=== PATIENT | female | born 1950 | race Caucasian/White ===

== ENCOUNTER 2017-08-19 12:42 | Emergency (ER) | payer OTHER ==
[2017-08-19 12:54] VITALS: BP 159/80; PULSE 84; TEMP 98.2; BMI 26.2
--- NOTE | 2017-08-19 13:56 | PDOC ---
History of Present Illness - General Chief Complaint: Pain Stated Complaint: PAIN/ BACK, LEGS Time Seen by Provider: 08/19/17 13:55 History Source: Patient Exam Limitations: No Limitations - History of Present Illness Initial Comments: 08/19/17 14:16 My chief complaint: Lower back pain bilaterally down posterior thighs and on left side towards left groin area also History of present illness: Patient is a 66-year-old female with history of hypothyroidism, none of insulin-dependent diabetes, hypertension, and depression and bilateral knee pain here today complaining of worsening lower back pain that radiates down posterior thighs. Patient reports that pain also reports on left side lower back pain radiates also to her left groin area as well. Patient reports that pain has been getting worse over the last 2 weeks patient thinks it might be related to having to walk further including up hills to get to her apartment due to some construction with parking. Patient reports that last night around 2:30 when she got up in the morning she tried to walk and her legs felt weak she did not have her cane patient fell but did not injure herself. Patient denies hitting her head. Patient reports having some tingling of bilateral lower extremities. Patient denies any saddle anesthesia or any incontinency. Patient reports taking tramadol and the past for pain but thinks it's too strong. Occurred: reports: other (almost 2 weeks ) Severity: reports: moderate Pain Location: reports: back (b/l lower back radiates down b/l posterrior thighs , and on left towards left groin area also) Method of Injury: Yes: unknown Modifying Factors: improves with: None Loss of Consciousness: no loss of consciousness Associated Symptoms (Fall): trouble walking (uses a cane) Past History - Past Medical History Allergies/Adverse Reactions: Allergies Allergy/AdvReac Type Severity Reaction Status Date / Time No Known Allergies Allergy Verified 08/19/17 12:53 Home Medications: Ambulatory Orders Amlodipine Besylate [Norvasc -] 10 mg PO DAILY 04/08/12 Levothyroxine [Synthroid -] 125 mcg PO DAILY 04/08/12 Sitagliptin Phos/Metformin HCl [Janumet 50-500 mg Tablet] 1 tab PO DAILY Gabapentin 100 mg PO TID 12/31/15 Cyclobenzaprine HCl 5 mg PO Q8H PRN #21 tablet 08/19/17 Naproxen [Naprosyn -] 500 mg PO BID PRN #14 tablet 08/19/17 Anemia: No Asthma: No Cancer: No Cardiac Disorders: No CVA: No COPD: No CHF: No Dementia: No Diabetes: Yes GI Disorders: No Disorders: No HTN: Yes Hypercholesterolemia: No Liver Disease: No Seizures: No Thyroid Disease: Yes - Surgical History Abdominal Surgery: No Appendectomy: No Cardiac Surgery: No Cholecystectomy: No Lung Surgery: No Neurologic Surgery: No Orthopedic Surgery: No - Suicide/Smoking/Psychosocial Hx Smoking Status: No Smoking History: Never smoked Have you smoked in the past 12 months: No Number of Cigarettes Smoked Daily: 0 If you are a former smoker, when did you quit?: 1989 Alcohol Use: No Drug/Substance Use Hx: No Substance Use Type: None Hx Substance Use Treatment: No Review of Systems - Review of Systems Able to Perform ROS?: Yes Constitutional: No: Symptoms Reported HEENTM: No: Symptoms Reported Respiratory: No: Symptoms reported Cardiac (ROS): No: Symptoms Reported ABD/GI: No: Symptoms Reported : No: Symptoms Reported Musculoskeletal: Yes: Back Pain (b/l lumbar paraspinal muscles radiates to b/l posterior thighs, on left radiates towards left groin area also ) Integumentary: No: Symptoms Reported Neurological: Yes: Tingling (b/l lower extremities ) *Physical Exam - Vital Signs Last Vital Signs Temp Pulse Resp BP Pulse Ox 98.2 F 84 20 159/80 99 08/19/17 12:49 08/19/17 12:49 08/19/17 12:49 08/19/17 12:49 08/19/17 12:49 - Physical Exam General Appearance: Yes: Appropriately Dressed Respiratory/Chest: positive: Lungs Clear, Normal Breath Sounds. negative: Chest Tender, Respiratory Distress Cardiovascular: positive: Regular Rhythm, Regular Rate, S1, S2 Vascular Pulses: Dorsalis-Pedis (R): 4+, Doralis-Pedis (L): 4+ Gastrointestinal/Abdominal: positive: Normal Bowel Sounds, Soft. negative: Tender, Organomegaly, Distended, Guarding, Rebound, Tenderness, Hepatomegaly, Spleenomegaly Musculoskeletal: positive: Normal Inspection, Decreased Range of Motion (at waist with flexionm), Other (paraspinal lumbar muscle tenderness b/l ). negative: CVA Tenderness, CVA Tenderness (R), CVA Tenderness (L), Vertebral Tenderness Extremity: positive: Normal Capillary Refill, Normal Inspection, Normal Range of Motion. negative: Tender, Swelling Integumentary: positive: Normal Color Neurologic: positive: Alert, Normal Response, Motor Strength 5/5 (lower b/l ), Respond to painful stimul (b/l legs ), Responsive, Other (negative SLR b/l). negative: Numbness, Sensory Deficit (lower extremity) Deep Tendon Reflexes: Knee (L): 4+, Knee (R): 3+ Medical Decision Making - Medical Decision Making 08/19/17 14:19 Patient is a 66-year-old female with history of hypothyroidism, none of insulin- dependent diabetes, hypertension, and depression and bilateral knee pain here today complaining of worsening lower back pain that radiates down posterior thighs. Patient reports that pain also reports on left side lower back pain radiates also to her left groin area as well. Patient reports that pain has been getting worse over the last 2 weeks patient thinks it might be related to having to walk further including up hills to get to her apartment due to some construction with parking. Patient reports that last night around 2:30 when she got up in the morning she tried to walk and her legs felt weak she did not have her cane patient fell but did not injure herself. Patient denies hitting her head. Patient reports having some tingling of bilateral lower extremities. Patient denies any saddle anesthesia or any incontinency. Patient reports taking tramadol and the past for pain but thinks it's too strong. She was ambulating with a cane today without weakness of legs. b/l lumbar radiculopathy PLAN: toradol 60 mg IM now xray lumbar sacral spine since the lordosis has increased. There are arthritic changes have developed Naprosyn 500 mg every 12 hours when necessary pain #14 tablets Cyclobenzaprine 5 mg every 8 hours when necessary muscle spasm #21 tabs patient warned not to do anything that requires alertness such as driving or operating machinery pt. has her own orthopedist in [place]. 08/19/17 15:10 08/20/17 19:49 *DC/Admit/Observation/Transfer Diagnosis at time of Disposition: Lumbar pain with radiation down both legs - Discharge Dispostion Disposition: HOME Condition at time of disposition: Stable - Prescriptions Prescriptions: Cyclobenzaprine HCl 5 mg PO Q8H PRN #21 tablet PRN Reason: Muscle Spasms Naproxen [Naprosyn -] 500 mg PO BID PRN #14 tablet PRN Reason: Pain - Referrals Referrals: Omer Poon [Primary Care Provider] - - Patient Instructions Additional Instructions: Follow-up with orthopedist as soon as possible for further evaluation Return to emergency room if any weakness of legs or loss of control of bladder or bowel movement Avoid any strenuous activities try to limit walking up hills Patient voiced understanding of discharge instructions and all questions were answered - Post Discharge Activity
[2017-08-19] MEDS ORDERED: KETOROLAC TROMETHAMINE 60 MG/2 ML VIAL IM ONE (14:13)
[2017-08-19] MEDS ORDERED: KETOROLAC TROMETHAMINE 60 MG/2 ML VIAL ONE (14:17)
== END 2017-08-19 15:29 | disposition home or self-care (01) ==
LOC: JERFT 12:42
PROC: 3E0233Z Introduction of Anti-inflammatory into Muscle, Percutaneous Approach (ICD-10-PCS; principal; 2017-08-19)
DX: M54.16 Radiculopathy, lumbar region (principal); I10 Essential (primary) hypertension; E03.9 Hypothyroidism, unspecified; E11.9 Type 2 diabetes mellitus without complications; Z79.84 Long term (current) use of oral hypoglycemic drugs
CPT/HCPCS: 72100-TC; 96372; 99281-25

== ENCOUNTER 2019-06-12 11:09 | Emergency (ER) | payer OTHER ==
[2019-06-12 11:41] VITALS: BP 131/52; PULSE 77; TEMP 98; BMI 26.0
[2019-06-12] MEDS ORDERED: LIDOCAINE 5% TOPICAL PATCH TP ONE (12:32)
[2019-06-12] MEDS ORDERED: CYCLOBENZAPRINE HCL 10 MG TABLET (FP) PO ONE (12:32)
[2019-06-12] MEDS ORDERED: IBUPROFEN 600 MG TABLET (FP) PO ONE ×2 (12:32→12:40)
[2019-06-12] MEDS ORDERED: MAG HYDROX/AL HYDROX/SIMETH 30 ML UNIT-DOSE CUP PO ONE (12:34)
[2019-06-12] MEDS ORDERED: MAG HYDROX/AL HYDROX/SIMETH 30 ML UNIT-DOSE CUP ONE (12:40)
[2019-06-12] MEDS ORDERED: LIDOCAINE 5% TOPICAL PATCH ONE (12:40)
[2019-06-12] MEDS ORDERED: CYCLOBENZAPRINE HCL 10 MG TABLET (FP) ONE (12:40)
--- NOTE | 2019-06-12 13:16 | PDOC ---
History of Present Illness - General Chief Complaint: Back Pain Stated Complaint: BACK PAIN Time Seen by Provider: 06/12/19 12:01 History Source: Patient Exam Limitations: No Limitations Past History - Past Medical History Allergies/Adverse Reactions: Allergies Allergy/AdvReac Type Severity Reaction Status Date / Time No Known Allergies Allergy Verified 06/12/19 11:41 Home Medications: Ambulatory Orders Amlodipine Besylate [Norvasc -] 10 mg PO DAILY 04/08/12 Levothyroxine [Synthroid -] 125 mcg PO DAILY 04/08/12 Sitagliptin Phos/Metformin HCl [Janumet 50-500 mg Tablet] 1 tab PO DAILY Gabapentin 100 mg PO TID 12/31/15 Cyclobenzaprine HCl 5 mg PO Q8H PRN #21 tablet 08/19/17 Naproxen [Naprosyn -] 500 mg PO BID PRN #14 tablet 08/19/17 Cyclobenzaprine HCl [Flexeril 10 mg] 5 mg PO DAILY PRN #7 tablet 06/12/19 Lidocaine 5% Patch [Lidoderm -] 1 patch TP DAILY #7 patch 06/12/19 Anemia: No Asthma: No Cancer: No Cardiac Disorders: No CVA: No COPD: No CHF: No Dementia: No Diabetes: Yes GI Disorders: No Disorders: No HTN: Yes Hypercholesterolemia: No Liver Disease: No Psychiatric Problems: Yes (ANXIETY, DEPRESSION) Seizures: No Thyroid Disease: Yes (HYPO) - Surgical History Abdominal Surgery: No Appendectomy: No Cardiac Surgery: No Cholecystectomy: No Lung Surgery: No Neurologic Surgery: No Orthopedic Surgery: No - Immunization History Immunization Up to Date: Yes - Psycho Social/Smoking Cessation Hx Smoking Status: No Smoking History: Never smoked Have you smoked in the past 12 months: No Number of Cigarettes Smoked Daily: 0 If you are a former smoker, when did you quit?: 1989 Information on smoking cessation initiated: No Hx Alcohol Use: No Drug/Substance Use Hx: No Substance Use Type: None Hx Substance Use Treatment: No *Physical Exam - Vital Signs Last Vital Signs Temp Pulse Resp BP Pulse Ox 98.0 F 77 18 131/52 L 98 06/12/19 11:36 06/12/19 11:36 06/12/19 11:36 06/12/19 11:36 06/12/19 11:36 - Physical Exam General Appearance: No: Apparent Distress Respiratory/Chest: positive: Lungs Clear, Normal Breath Sounds. negative: Respiratory Distress Cardiovascular: positive: Regular Rhythm, Regular Rate, S1, S2. negative: Murmur Gastrointestinal/Abdominal: positive: Normal Bowel Sounds, Soft. negative: Tender, Distended, Guarding, Rebound Musculoskeletal: positive: Other (+L lumbar paraspinal tenderness, negative SLR) . negative: Vertebral Tenderness Neurologic: positive: Alert, Normal Mood/Affect, Motor Strength 5/5, Other ( able to ambulate). negative: Sensory Deficit ED Treatment Course - Medications Given in the ED: ED Medications Discontinued Medications Generic Name Dose Route Start Last Admin Trade Name Freq PRN Reason Stop Dose Admin Al Hydroxide/Mg Hydroxide 30 ml 06/12/19 12:34 06/12/19 12:44 Mylanta Oral Suspension - PO 06/12/19 12:35 30 ml ONCE ONE Administration Cyclobenzaprine HCl 5 mg 06/12/19 12:32 06/12/19 12:44 Flexeril - PO 06/12/19 12:33 5 mg ONCE ONE Administration Ibuprofen 600 mg 06/12/19 12:32 06/12/19 12:44 Motrin - PO 06/12/19 12:33 600 mg ONCE ONE Administration Lidocaine 1 patch 06/12/19 12:32 06/12/19 12:44 Lidoderm Patch - TP 06/12/19 12:33 1 patch ONCE ONE Administration Medical Decision Making - Medical Decision Making 68 y/o F hx hypothyroid, HTN, DM, depression, anxiety, chronic neck pain presents with LBP radiating down L leg x 1 week after lifting something heavy and then exacerbated 5 days ago after going to gym after a long time. Follows with neuro, Dr. Gonzales, due to neck issues and states an [employer]EC[employer] from the office prescribed her gabapentin few days ago, which she has not yet taken. Denies fever, sob, cp, abd pain, vomiting, urinary complaints, incontinence, saddle/ groin paresthesia. Denies back surgeries. Likely sciatica Given Motrin, Flexeril and Lidocaine patch and patient feeling much better stable for dc 06/12/19 13:12 Discharge - Discharge Information Problems reviewed: Yes Clinical Impression/Diagnosis: Sciatica Qualifiers: Laterality: left Qualified Code(s): M54.32 - Sciatica, left side Condition: Improved Disposition: HOME - Admission No - Additional Discharge Information Prescriptions: Cyclobenzaprine HCl [Flexeril 10 mg] 5 mg PO DAILY PRN #7 tablet PRN Reason: Muscle Spasms Lidocaine 5% Patch [Lidoderm -] 1 patch TP DAILY #7 patch Prescription Drug Monitoring Program (I-STOP) results: I-STOP not reviewed - Follow up/Referral Referrals: Carolyn Pathak MD [Primary Care Provider] - 2 Days - Patient Discharge Instructions Patient Printed Discharge Instructions: DI for Back Pain With Sciatica Additional Instructions: Thank you for choosing [facility]. It was a pleasure taking care of you. You may take Tylenol 650 mg or Motrin 600 mg every 6 hours by mouth as needed for mild to moderate pain. Take Motrin with food. Do not take more than 4000 mg of Tylenol in 1 day. Please realize that Motrin can affect kidney function. Take Flexeril as needed for muscle spasms. This medication can also make you drowsy so please be cautious with driving or performing heavy physical work. Recommend warm compresses Continue follow-up with your neurologist and primary care doctor Return to the Emergency Department if your symptoms worsen or persist, you have fever, shortness of breath, chest pain, severe abdominal pain, vomiting, weakness of extremities (arms and/or legs), changes in vision or walking or other concerning symptoms. - Post Discharge Activity
== END 2019-06-12 13:27 | disposition home or self-care (01) ==
LOC: JERFT 11:09
DX: M54.42 Lumbago with sciatica, left side (principal); I10 Essential (primary) hypertension; E11.9 Type 2 diabetes mellitus without complications; Z79.84 Long term (current) use of oral hypoglycemic drugs; E03.9 Hypothyroidism, unspecified; F41.8 Other specified anxiety disorders; F32.9 Major depressive disorder, single episode, unspecified; M54.2 Cervicalgia; G89.29 Other chronic pain
CPT/HCPCS: 99282-25

== ENCOUNTER 2019-07-07 17:35 | Emergency (ER) | payer OTHER ==
[2019-07-07 17:49] VITALS: BP 161/76; PULSE 88; TEMP 98.1; BMI 26.9
[2019-07-07] MEDS ORDERED: KETOROLAC TROMETHAMINE 60 MG/2 ML VIAL ONE (18:58)
[2019-07-07] MEDS ORDERED: KETOROLAC TROMETHAMINE 60 MG/2 ML VIAL IM ONE (19:00)
--- NOTE | 2019-07-07 19:05 | PDOC ---
History of Present Illness - General Chief Complaint: Back Pain Stated Complaint: back pain Time Seen by Provider: 07/07/19 18:44 - History of Present Illness Initial Comments: 07/07/19 19:02 68-year-old female with a past medical history of hypertension diabetes presents for evaluation of lumbar radiculopathy without systemic or urinary symptoms no loss of bowel or bladder functions Past History - Past Medical History Allergies/Adverse Reactions: Allergies Allergy/AdvReac Type Severity Reaction Status Date / Time No Known Allergies Allergy Verified 06/12/19 11:41 Home Medications: Ambulatory Orders Amlodipine Besylate [Norvasc -] 10 mg PO DAILY 04/08/12 Levothyroxine [Synthroid -] 125 mcg PO DAILY 04/08/12 Sitagliptin Phos/Metformin HCl [Janumet 50-500 mg Tablet] 1 tab PO DAILY Gabapentin 100 mg PO TID 12/31/15 Cyclobenzaprine HCl 5 mg PO Q8H PRN #21 tablet 08/19/17 Naproxen [Naprosyn -] 500 mg PO BID PRN #14 tablet 08/19/17 Cyclobenzaprine HCl [Flexeril 10 mg] 5 mg PO DAILY PRN #7 tablet 06/12/19 Lidocaine 5% Patch [Lidoderm -] 1 patch TP DAILY #7 patch 06/12/19 Cyclobenzaprine HCl [Flexeril 10 mg] 10 mg PO HS PRN #10 tablet 07/07/19 Anemia: No Asthma: No Cancer: No Cardiac Disorders: No CVA: No COPD: No CHF: No Dementia: No Diabetes: Yes GI Disorders: No Disorders: No HTN: Yes Hypercholesterolemia: No Liver Disease: No Psychiatric Problems: Yes (ANXIETY, DEPRESSION) Seizures: No Thyroid Disease: Yes (HYPO) - Surgical History Abdominal Surgery: No Appendectomy: No Cardiac Surgery: No Cholecystectomy: No Lung Surgery: No Neurologic Surgery: No Orthopedic Surgery: No - Immunization History Immunization Up to Date: Yes - Psycho Social/Smoking Cessation Hx Smoking Status: No Smoking History: Never smoked Have you smoked in the past 12 months: No Number of Cigarettes Smoked Daily: 0 If you are a former smoker, when did you quit?: 1989 Information on smoking cessation initiated: No Hx Alcohol Use: No Drug/Substance Use Hx: No Substance Use Type: None Hx Substance Use Treatment: No Review of Systems - Review of Systems Constitutional: No: Fever Musculoskeletal: Yes: Back Pain Neurological: Yes: See HPI *Physical Exam - Vital Signs Last Vital Signs Temp Pulse Resp BP Pulse Ox 98.1 F 88 16 161/76 99 07/07/19 17:45 07/07/19 17:45 07/07/19 17:45 07/07/19 17:45 07/07/19 17:45 - Physical Exam Comments: 07/07/19 19:03 Lumbar spine skin color and temperature normal range of motion is limited. There is no midline tenderness. Moderate right and left paralumbar muscular spasm and tenderness 5 out of 5 strength bilateral lower extremities without gross sensorimotor deficits neurovascular intact Medical Decision Making - Medical Decision Making 07/07/19 19:03 Ongoing lumbar radiculopathy. Patient recently started on Neurontin. She did not take any anti-inflammatories today we will give her a one-time injection of Toradol in the emergency room to try to help her pain having her avoid anti- inflammatories at home and have her follow-up with neurosurgery and also increased dose of her Flexeril which she ran out of. Discharge - Discharge Information Problems reviewed: Yes Clinical Impression/Diagnosis: Lumbar radiculopathy Condition: Stable Disposition: HOME - Admission No - Additional Discharge Information Prescriptions: Cyclobenzaprine HCl [Flexeril 10 mg] 10 mg PO HS PRN #10 tablet PRN Reason: Muscle Spasms - Follow up/Referral Referrals: Omer Poon [Primary Care Provider] - Vega Morrison MD [Staff Physician] - - Patient Discharge Instructions Additional Instructions: No anti-inflammatory such as Advil Motrin Aleve or ibuprofen. No Naprosyn. Tylenol for pain as directed. Please take Flexeril as directed and return to the emergency room should symptoms worsen. Without fail, please follow-up with neurosurgery in 1 to 2 days for further evaluation and treatment options. - Post Discharge Activity
== END 2019-07-07 19:09 | disposition home or self-care (01) ==
LOC: JERFT 17:35
PROC: 3E0233Z Introduction of Anti-inflammatory into Muscle, Percutaneous Approach (ICD-10-PCS; principal; 2019-07-07)
DX: M54.16 Radiculopathy, lumbar region (principal); M62.830 Muscle spasm of back; I10 Essential (primary) hypertension; E11.9 Type 2 diabetes mellitus without complications; Z79.84 Long term (current) use of oral hypoglycemic drugs; E03.9 Hypothyroidism, unspecified; F41.8 Other specified anxiety disorders; F32.9 Major depressive disorder, single episode, unspecified
CPT/HCPCS: 96372; 99281-25

== ENCOUNTER 2019-09-11 15:12 | Emergency (ER) | payer OTHER ==
--- NOTE | 2019-09-11 15:19 | PDOC ---
Rapid Medical Evaluation Time Seen by Provider: 09/11/19 15:14 Medical Evaluation: Allergies Allergy/AdvReac Type Severity Reaction Status Date / Time No Known Allergies Allergy Verified 06/12/19 11:41 09/11/19 15:15 I have performed a brief in-person evaluation of this patient. The patient presents with a chief complaint of: recent [facility] fall landing on knees and now states lower back pain, amb w/ cane, no limp, able to get and sit down in chair without any signs of discomfort Pertinent physical exam findings: no midline tenderness, vss, FROM of darius patellas I have ordered the following: none The patient will proceed to the ED for further evaluation. Discharge Disposition - Diagnosis Right leg pain, Sciatica Fall Qualifiers: Encounter type: initial encounter Qualified Code(s): W19.XXXA - Unspecified fall, initial encounter - Discharge Dispostion Disposition: HOME Condition at time of disposition: Stable - Prescriptions Prescriptions: Cyclobenzaprine HCl [Flexeril -] 10 mg PO HS #10 tablet Ketorolac Tromethamine [Toradol] 10 mg PO TID #21 tablet Walker [Ultra-Light Rollator] 1 each ASDIR #1 each - Referrals Referrals: Omer Poon [Primary Care Provider] - - Patient Instructions Printed Discharge Instructions: DI for Sciatica, DI for Arthritis Additional Instructions: You were evaluated for your injuries after a fall today. Your x-rays were negative for fracture. Please continue to wear your wrist splint for your arthritis in your right hand. You may wear the splint at night to help with the pain Please take the Toradol as directed. You may take Tylenol 650 mg every 6 hours as needed for pain. Take the Flexeril as directed. Do not drink or drive after taking this medication as it may make you drowsy. Please follow-up with your neurologist this week Return to the ER for worsening pain, unsteadiness or if you have any changes in your symptoms. - Post Discharge Activity
[2019-09-11 15:29] VITALS: BP 150/81; PULSE 93; TEMP 98.1; BMI 25.6
[2019-09-11] MEDS ORDERED: KETOROLAC TROMETHAMINE 30 MG/1 ML VIAL IM ONE (16:47)
[2019-09-11] MEDS ORDERED: LIDOCAINE 5% TOPICAL PATCH TP ONE (16:47)
[2019-09-11] MEDS ORDERED: KETOROLAC TROMETHAMINE 30 MG/1 ML VIAL ONE (16:49)
[2019-09-11] MEDS ORDERED: LIDOCAINE 5% TOPICAL PATCH ONE (16:49)
[2019-09-11] MEDS ORDERED: CYCLOBENZAPRINE HCL 10 MG TABLET (FP) PO ONE (18:00)
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
[2019-09-11] MEDS ORDERED: CYCLOBENZAPRINE HCL 10 MG TABLET (FP) ONE (18:24)
== END 2019-09-11 18:28 | disposition home or self-care (01) ==
LOC: JERFT 15:12
PROC: 3E0233Z Introduction of Anti-inflammatory into Muscle, Percutaneous Approach (ICD-10-PCS; principal; 2019-09-11)
DX: M54.42 Lumbago with sciatica, left side (principal); M62.830 Muscle spasm of back; M25.561 Pain in right knee; M25.562 Pain in left knee; M79.641 Pain in right hand; W18.09XA Striking against other object with subsequent fall, initial encounter; Y93.01 Activity, walking, marching and hiking; Y92.038 Other place in apartment as the place of occurrence of the external cause; Y99.8 Other external cause status; Z99.89 Dependence on other enabling machines and devices; I10 Essential (primary) hypertension; E11.9 Type 2 diabetes mellitus without complications; Z79.84 Long term (current) use of oral hypoglycemic drugs; E03.9 Hypothyroidism, unspecified; F41.8 Other specified anxiety disorders; F32.9 Major depressive disorder, single episode, unspecified
CPT/HCPCS: 73130-TC-RT-FY; 73562-TC-RT-FY; 73590-TC-RT-FY; 99281-25

== ENCOUNTER 2019-10-06 11:16 | Emergency (ER) | payer OTHER ==
[2019-10-06] MEDS ORDERED: MAG HYDROX/AL HYDROX/SIMETH 30 ML UNIT-DOSE CUP ONE (11:39)
[2019-10-06] MEDS ORDERED: FAMOTIDINE 20 MG/50 ML IVPB 20 MG/50 ML MG IVPB ONE (11:39)
[2019-10-06] MEDS ORDERED: KETOROLAC TROMETHAMINE 30 MG/1 ML VIAL IM ONE (11:46)
[2019-10-06] MEDS ORDERED: CYCLOBENZAPRINE HCL 10 MG TABLET (FP) PO ONE (11:46)
--- NOTE | 2019-10-06 11:48 | PDOC ---
History of Present Illness - General Chief Complaint: Pain Stated Complaint: left leg pain Time Seen by Provider: 10/06/19 11:21 History Source: Patient Exam Limitations: No Limitations - History of Present Illness Initial Comments: 10/06/19 11:47 68y F hx of htn, hypothyroidism, dm, chronic back pain presents with complaint of back pain. Patient states that she has been having lower back pain for the past 5 months it is occasionally improved with Motrin however the last several days has been getting worse. Patient notes that the pain begins in the left lower back and radiates down her leg And feels like "water running down her legs ". The patient does remember approximately 5 months ago she was lifting a squash and putting it into a trunk when it first started. The patient denies any recent injury/trauma, numbness, tingling, urinary bowel incontinence, fevers , chills. She denies any chest pain, shortness of breath, dyspnea on exertion, abdominal pain. The patient has seen multiple physicians including her primary care doctor or neurologist, She is also had MRIs noting disc herniations as well as spinal stenosis and L4-L5 region. Patient last took Motrin last night, she takes Proximally once daily 400 mg due to concern for gastric issues. She also is taking CBD with mild improvement. ROS Constitutional - no reported Fever, Chills, Respiratory: no reported cough, sob, Cardiac: no reported chest pain, Abd/GI: no reported abd pain, nausea, vomiting, : no reported urinary incontinence, gu tingling Musculskelatal - +back pain, no reported joint swelling skin - no reported bruising, erythema, rash neurological: no reported headache, numbness, focal weakness, tingling, ataxia, hematologic: no reported easy bruising, easy bleeding Exam: GENERAL: The patient is awake, alert, and fully oriented, Nontoxic - in no acute distress. NECK: Normal range of motion, supple LUNGS: Breath sounds equal, clear to auscultation bilaterally. No wheezes, no rhonchi, no rales. HEART: Regular rate and rhythm, normal S1 and S2 without murmur, rub or gallop. ABDOMEN: Soft, nontender, No guarding, no rebound. No CVA tenderness EXTREMITIES: Normal range of motion, no edema. BACK: Mild left lower/lumbar paraspinal tenderness, no focal midline tenderness , ecchymosis, step-offs, crepitus. NEUROLOGICAL: No facial assymetry, Normal speech, Moving all 4 expect extremity spontaneously and symmetrically including dorsi and plantar flexion of the legs. No sensory deficits appreciated On lower extremities PSYCH: Normal mood, normal affect. SKIN: Warm, Dry, normal turgor, ap Her back pain is likely secondary to muscle spasm and likely disc impingement There are no red flags to suggest cord Compression We will give the patient Motrin, Flexeril, heating pads I believe that she has not gotten significantly better due to sporadic use of NSAIDs, Will recommend more consistent use for the next 3 days, PMD follow-up, return precautions were discussed Past History - Past Medical History Allergies/Adverse Reactions: Allergies Allergy/AdvReac Type Severity Reaction Status Date / Time No Known Allergies Allergy Verified 10/06/19 11:17 Home Medications: Ambulatory Orders Amlodipine Besylate 10 mg PO DAILY 10/06/19 Ibuprofen 400 mg PO DAILY 10/06/19 Levothyroxine [Synthroid -] 125 mcg PO DAILY 10/06/19 Losartan Potassium 50 mg PO DAILY 10/06/19 Metformin HCl [Glucophage] 500 mg PO DAILY 10/06/19 Discharge - Discharge Information Problems reviewed: Yes Clinical Impression/Diagnosis: Back pain at L4-L5 level, Sciatica of left side Condition: Improved Disposition: HOME - Admission No - Follow up/Referral Referrals: Omer Poon [Non Staff, Medical] - - Patient Discharge Instructions Patient Printed Discharge Instructions: DI for Low Back Pain, DI for Back Pain With Sciatica Additional Instructions: Return to the emergency department immediately with ANY new, persistent or worsening symptoms including numbness, tingling, weakness, fevers or any other concerns. Take ibuprofen (400mg)/tylenol(650mg) every 6 hours for 2 days. Take the flexeril if you still have pain/discomfort. Caution in using Valium as it may make you sleepy. Do not drive or put yourself in any position where you would be in danger. Apply heat to your sore muscles. You MUST call and follow up with your doctor tomorrow for further evaluation of your symptoms. Your emergency department visit is not complete without a followup with your doctor for reevaluation.. Results were discussed with you. Please make sure your doctor reviews the results of your emergency evaluation. Print Language: NIGERIAN - Post Discharge Activity
[2019-10-06 12:01] VITALS: BP 174/91; PULSE 102; TEMP 98.1; BMI 25.1
[2019-10-06] MEDS ORDERED: KETOROLAC TROMETHAMINE 30 MG/1 ML VIAL ONE (12:01)
[2019-10-06] MEDS ORDERED: CYCLOBENZAPRINE HCL 10 MG TABLET (FP) ONE (12:01)
== END 2019-10-06 13:02 | disposition home or self-care (01) ==
LOC: MERGE 11:16 → FER 11:16
PROC: 3E0233Z Introduction of Anti-inflammatory into Muscle, Percutaneous Approach (ICD-10-PCS; principal; 2019-10-06)
DX: I10 Essential (primary) hypertension (principal); G89.29 Other chronic pain
CPT/HCPCS: 96372; 99282-25

== ENCOUNTER 2022-04-30 07:15 | Emergency (ER) | payer OTHER ==
[2022-04-30 07:26] VITALS: TEMP 98.2; BMI 25.1
[2022-04-30] MEDS ORDERED: KETOROLAC TROMETHAMINE 15 MG/ML VIAL IM ONE (07:49)
[2022-04-30] MEDS ORDERED: CYCLOBENZAPRINE HCL 10 MG TABLET (FP) PO ONE (07:49)
[2022-04-30] MEDS ORDERED: CYCLOBENZAPRINE HCL 5 MG TABLET ONE (07:56)
[2022-04-30] MEDS ORDERED: KETOROLAC TROMETHAMINE 15 MG/ML VIAL ONE (07:56)
[2022-04-30 09:19] VITALS: BP 166/88; PULSE 73; RESP 20
== END 2022-04-30 09:53 | disposition home or self-care (01) ==
LOC: FER 07:15
PROC: 3E0233Z Introduction of Anti-inflammatory into Muscle, Percutaneous Approach (ICD-10-PCS; principal; 2022-04-30)
DX: M62.838 Other muscle spasm (principal)
CPT/HCPCS: 96372; 99284-25

== ENCOUNTER 2022-08-22 19:02 | Emergency (ER) | payer OTHER ==
[2022-08-22 19:19] VITALS: BP 161/72; PULSE 87; RESP 18; TEMP 97.8; BMI 27.9
[2022-08-22] MEDS ORDERED: predniSONE 20 MG TABLET (UD) PO ONE (19:37)
[2022-08-22] MEDS ORDERED: predniSONE 20 MG TABLET (UD) ONE (19:41)
== END 2022-08-22 21:05 | disposition home or self-care (01) ==
LOC: FER 19:02
DX: R05.8 Other specified cough (principal)
CPT/HCPCS: 71046-TC-FY; 99283-25

== ENCOUNTER 2023-05-02 12:39 | Emergency (ER) | payer OTHER ==
[2023-05-02] MEDS ORDERED: KETOROLAC TROMETHAMINE 60 MG/2 ML VIAL IM ONE (13:09)
[2023-05-02] MEDS ORDERED: ACETAMINOPHEN 500 MG TABLET (FP) PO ONE (13:11)
[2023-05-02] MEDS ORDERED: KETOROLAC TROMETHAMINE 60 MG/2 ML VIAL ONE (13:11)
[2023-05-02 13:20] VITALS: BP 152/80; PULSE 80; RESP 18; TEMP 98.4; BMI 27.9
[2023-05-02] MEDS ORDERED: ACETAMINOPHEN 500 MG TABLET (FP) ONE (13:25)
== END 2023-05-02 13:38 | disposition home or self-care (01) ==
LOC: FER 12:39
PROC: 3E0233Z Introduction of Anti-inflammatory into Muscle, Percutaneous Approach (ICD-10-PCS; principal; 2023-05-02)
DX: S13.4XXA Sprain of ligaments of cervical spine, initial encounter (principal); V49.40XA Driver injured in collision with unspecified motor vehicles in traffic accident, initial encounter
CPT/HCPCS: 99284-25

== ENCOUNTER 2023-10-22 14:53 | Emergency (ER) | payer OTHER ==
[2023-10-22 15:22] VITALS: BP 157/69; PULSE 88; RESP 20; TEMP 98.2; BMI 26.4
[2023-10-22] MEDS ORDERED: ACETAMINOPHEN 325 MG TABLET (FP) ONE (15:37)
[2023-10-22] MEDS: ACETAMINOPHEN 325 MG TABLET (FP) PO ONE (15:40)
== END 2023-10-22 16:12 | disposition home or self-care (01) ==
LOC: FER 14:53
DX: S09.90XA Unspecified injury of head, initial encounter (principal); R42 Dizziness and giddiness; W01.198A Fall on same level from slipping, tripping and stumbling with subsequent striking against other object, initial encounter
CPT/HCPCS: 70450-TC; 99284-25

== ENCOUNTER 2024-04-15 11:30 | Emergency (ER) | payer OTHER ==
[2024-04-15 11:41] VITALS: BP 179/83; PULSE 89; RESP 20; TEMP 98.2; BMI 27.9
[2024-04-15] MEDS ORDERED: KETOROLAC TROMETHAMINE 30 MG/1 ML VIAL ONE (12:28)
[2024-04-15] MEDS ORDERED: LIDOCAINE 5% TOPICAL PATCH ONE (12:29)
[2024-04-15] MEDS: LIDOCAINE 5% TOPICAL PATCH TP ONE (12:38)
[2024-04-15] MEDS: KETOROLAC TROMETHAMINE 30 MG/1 ML VIAL IM ONE (12:38)
[2024-04-15] MEDS ORDERED: LIDOCAINE PATCH REMOVAL MC ONE (22:00)
== END 2024-04-15 13:09 | disposition home or self-care (01) ==
LOC: FER 11:30
PROC: 3E0133Z Introduction of Anti-inflammatory into Subcutaneous Tissue, Percutaneous Approach (ICD-10-PCS; principal; 2024-04-15)
DX: M54.42 Lumbago with sciatica, left side (principal); G89.29 Other chronic pain
CPT/HCPCS: 99284-25

== ENCOUNTER 2024-04-19 15:55 | Emergency (ER) | payer OTHER ==
[2024-04-19 16:20] VITALS: BP 163/70; PULSE 77; RESP 16; TEMP 98.6; BMI 27.8
[2024-04-19] MEDS ORDERED: LIDOCAINE 5% TOPICAL PATCH ONE (17:34)
[2024-04-19] MEDS ORDERED: KETOROLAC TROMETHAMINE 15 MG/ML VIAL ONE (17:34)
[2024-04-19] MEDS: KETOROLAC TROMETHAMINE 15 MG/ML VIAL IM ONE (17:39)
[2024-04-19] MEDS: LIDOCAINE 5% TOPICAL PATCH TP ONE (17:39)
[2024-04-19] MEDS ORDERED: LIDOCAINE PATCH REMOVAL MC SCH (22:00)
== END 2024-04-19 17:43 | disposition home or self-care (01) ==
LOC: FER 15:55
PROC: 3E0133Z Introduction of Anti-inflammatory into Subcutaneous Tissue, Percutaneous Approach (ICD-10-PCS; principal; 2024-04-19)
DX: M54.42 Lumbago with sciatica, left side (principal); G89.29 Other chronic pain
CPT/HCPCS: 96372; 99284-25

== ENCOUNTER 2024-12-10 06:51 | Day surgery (SDC) | payer OTHER ==
[2024-12-04 12:41] VITALS: BMI 27.0
[2024-12-10] MEDS ORDERED: LIDOCAINE HCL/PF 2% SDV 5ML VIAL ONE (07:01)
[2024-12-10] MEDS ORDERED: PROPOFOL 160 ML ONE (07:02)
[2024-12-10 07:43] VITALS: RESP 18
[2024-12-10 08:46] VITALS: TEMP 97.2
[2024-12-10 09:19] VITALS: BP 122/68; PULSE 82
== END 2024-12-10 09:10 | disposition home or self-care (01) ==
LOC: FASU-ENDO 06:51
PROVIDERS: ATTEND Internal Medicine Gastroenterology
PROC: 0DBL8ZX Excision of Transverse Colon, Via Natural or Artificial Opening Endoscopic, Diagnostic (ICD-10-PCS; 2024-12-10)
PROC: 0DBM8ZX Excision of Descending Colon, Via Natural or Artificial Opening Endoscopic, Diagnostic (ICD-10-PCS; 2024-12-10)
PROC: 0DBK8ZX Excision of Ascending Colon, Via Natural or Artificial Opening Endoscopic, Diagnostic (ICD-10-PCS; principal; 2024-12-10 08:13)
DX: Z12.11 Encounter for screening for malignant neoplasm of colon (principal); D12.2 Benign neoplasm of ascending colon; D12.3 Benign neoplasm of transverse colon; D12.4 Benign neoplasm of descending colon; K57.30 Diverticulosis of large intestine without perforation or abscess without bleeding; Z86.0109 Personal history of other colon polyps
CPT/HCPCS: 82962; 88305-TC